=== PATIENT | female | born 1970 | race Caucasian/White ===

== ENCOUNTER → 2018-08-07 | Outpatient (CLI) | payer MEDICARE ==
[~2018-08-07] MED LIST: PERFLUTREN PROTEIN-A MICROSPHR 0.22 MG/ML 3 ML VIAL. IV ONE; PERFLUTREN PROTEIN-A MICROSPHR 0.22 MG/ML 3 ML VIAL. IV PRN
--- NOTE | 2018-08-08 10:14 | CARD ---
MR#: [id number] Date of Study: 08/07/2018 Ordering Physician: SONYA DALEY, Referring Physician: SONYA DALEY, Tech: Che Ugalde APPROVED REPORT EXAM: Two-dimensional and M-mode echocardiogram with Doppler and color Doppler. Other Information Quality : FairHR: 79bpm INDICATION Hypertension/HCVD Echo Enhancing Agent Agent/Amount Used: Optison 3mL RISK FACTORS Hyperlipidemia Diabetes 2D DIMENSIONS Left Atrium(2D)3.6 (1.6-4.0cm)IVSd1.2 (0.7-1.1cm) Aortic Root(2D)3.0 (2.0-3.7cm)LVDd5.7 (3.9-5.9cm) LVOT Diameter2.1 (1.8-2.4cm)PWd1.3 (0.7-1.1cm) LVDs3.3 (2.5-4.0cm)FS (%) 43.2 % SV119.2 mlLVEF(%)73.7 (>50%) Aortic Valve AoV Peak Joce.119.0cm/sAoV VTI28.4cm AO Peak GR.5.7mmHgLVOT Peak Joce.84.9cm/s LVOT VTI 17.67cmAO Mean GR.4mmHg NEGIN (VMAX)1.55ww3KWF (VTI)2.09cm2 Mitral Valve MV E Qxqnoyso44.7cm/sMV DECEL [id number] MV A Rekuodlg02.4cm/sMV HYM91nl E/A Ratio0.6MVA (PHT)2.27cm2 TDI E/Lateral E'7.5E/Medial E'8.4 Pulmonary Valve PV Peak Zvwgddeq970.6cm/sPV Peak Grad.4mmHg Tricuspid Valve TR P. Awdbhkim852wk/sRAP QIPNUTPS1fhPb TR Peak Gr.12seGrNCXO05djSu Pulmonary Vein S1 Gxoubyfz03.7cm/sD2 Vrifcgus30.3cm/s PVa huldbsig780gzul LEFT VENTRICLE The left ventricle is normal size. There is borderline concentric left ventricular hypertrophy. The l eft ventricular systolic function is normal. The Ejection Fraction is 55%. There is normal LV segment al wall motion. Transmitral Doppler flow pattern is Grade I-abnormal relaxation pattern. RIGHT VENTRICLE The right ventricle is normal size. There is normal right ventricular wall thickness. The right ventr icular systolic function is normal. ATRIA The left atrium size is normal. The right atrium size is normal. AORTIC VALVE The aortic valve is not well visualized. Doppler and Color Flow revealed trace aortic regurgitation. There is no significant aortic valvular stenosis. MITRAL VALVE The mitral valve is normal in structure and function. Doppler and Color-flow revealed trace mitral re gurgitation. TRICUSPID VALVE The tricuspid valve is not well visualized. Doppler and Color Flow revealed trace tricuspid regurgita tion. There is no tricuspid valve stenosis. PULMONIC VALVE The pulmonic valve is not well visualized. Doppler and Color Flow revealed trace pulmonic valvular re gurgitation. GREAT VESSELS The aortic root is normal in size. Normal pulmonary venous flow (Doppler). The IVC is normal in size and collapses >50% with inspiration. PERICARDIAL EFFUSION There is no evidence of significant pericardial effusion. Critical Notification Critical Value: No <Conclusion> The left ventricular systolic function is normal. The Ejection Fraction is 55%. There is normal LV segmental wall motion. Transmitral Doppler flow pattern is Grade I-abnormal relaxation pattern. Trace mitral regurgitation. Trace tricuspid regurgitation. There is no evidence of significant pericardial effusion. Signed by : Randolph Malagon, Electronically Approved : 08/08/2018 10:14:00
== END | disposition home or self-care (01) ==
LOC: ECHO 09:44
PROVIDERS: ATTEND Internal Medicine Cardiovascular Disease
DX: E78.5 Hyperlipidemia, unspecified (principal); I11.9 Hypertensive heart disease without heart failure; E11.9 Type 2 diabetes mellitus without complications
CPT/HCPCS: C8929; Q9956